=== PATIENT | male | born 1980 | race Caucasian/White ===

== ENCOUNTER 2016-05-24 15:52 | Emergency (ER) | payer BC ==
[~2016-05-24] VITALS: Ht 185.4 cm; Wt 68.0 kg
[~2016-05-24 15:52] MED LIST: CYCL-36 PO; TYLE3 PO; Z.0.NO CURRENT MEDS
[2016-05-24 15:55] VITALS: BP 129/81; PULSE 87; RESP 16; TEMP 99.7; O2SAT 98
[2016-05-24] MEDS ORDERED: CLIN1CAP6 PO (16:31)
[2016-05-24] MEDS ORDERED: HYDR-3583 PO (16:31)
[2016-05-24] MEDS ORDERED: ONDANSETRON HCL 4 MG/2 ML VIAL IV PUSH ONE (17:00)
[2016-05-24] MEDS ORDERED: CLINDAMYCIN INJ 600 MG in SODIUM CHLORIDE 0.9% INJ 100 ML IV ONE (17:00)
[2016-05-24] MEDS ORDERED: SODIUM CHLOR 0.9% 1000 ML INJ 1,000 ML IV ONE (17:00)
[2016-05-24 17:05] LABS: AUTOMATED NEUTROPHIL # 9.2 TH/MM3 (1.8-7.7); BASOPHIL # 0.5 TH/MM3 (0-0.2); BASOPHIL % 3.8 % (0.0-2.0); EOSINOPHIL % 0.2 % (0.0-4.0); HEMATOCRIT 40.4 % (39.0-51.0); HEMO FLAGS DIFF FINAL; LYMPH % 10.3 % (9.0-44.0); LYMPHOCYTE # 1.2 TH/MM3 (1.0-4.8); MEAN CELL VOLUME 85.9 FL (80.0-100.0); MEAN CORPUSCULAR HEMOGLOBIN 28.8 PG (27.0-34.0); MEAN CORPUSCULAR HGB CONC 33.5 % (32.0-36.0); MONO % 8.9 % (0.0-8.0); NEUT % 76.8 % (16.0-70.0); PLATELET COUNT 232 TH/MM3 (150-450); RED BLOOD COUNT 4.71 MIL/MM3 (4.50-5.90); RED CELL DISTRIBUTION WIDTH 11.8 % (11.6-17.2)
[2016-05-24 17:15] LABS: POTASSIUM 3.7 MEQ/L (3.5-5.1)
[2016-05-24 17:18] LABS: BICARBONATE 29.8 MEQ/L (21.0-32.0)
[2016-05-24] MEDS ORDERED: KETOROLAC TROMETHAMINE 30 MG/ML (IVP) VIAL IV PUSH ONE (17:30)
--- NOTE | 2016-05-24 17:54 | PD ---
HPI Chief Complaint: Oral / Dental Pain or Problem Time Seen by Provider: 16:50 Travel History International Travel<30 days: No Contact w/Intl Traveler<30days: No Traveled to known affect area: No History of Present Illness HPI 35-year-old male states that he went to the [facility] and they placed him on a penicillin antibiotic but as he was throwing up but not feeling better he went to an urgent care. He states they placed him on a nausea medication and clindamycin but he threw that up. He states he last tried to take it this morning. He states that he still having pain to his right lower tooth. He states the dentist plans to pull that tooth after a week of antibiotics. He denies other concurrent complaints. Quality is sharp. Severity is moderate. Pain is worse with movement of his jaw. He denies other specific modifying factors. PFSH Past Medical History Medical History: Denies Significant Hx Past Surgical History Surgical History: No Previous Surgery Social History Alcohol Use: Yes (OCC) Tobacco Use: No Substance Use: No Allergies-Medications (Allergen,Severity, Reaction): Coded Allergies: No Known Allergies (Unverified , 05/24/16) Reported Meds & Prescriptions Reported Meds & Active Scripts Active Phenergan (Promethazine HCl) 25 Mg Tab 25 Mg PO Q6H PRN Reported Hydrocodone-Acetaminophen 10-325 mg Tab 1 Tab PO Q6H PRN Clindamycin (Clindamycin HCl) 300 Mg Cap 300 Mg PO Q6H Review of Systems Except as stated in HPI: all other systems reviewed are Neg Physical Exam Narrative GENERAL: Well-nourished, well-developed patient. Patient has pain with opening mouth which limits visualization SKIN: Warm and dry. HEAD: Normocephalic and atraumatic. EYES: No injection or drainage. ENT: No nasal drainage noted. Poor dentition noted to left lower molar with tenderness near this area without drainable periapical abscess, cervical lymphadenopathy noted on left NECK: Supple, trachea midline. No meningeal signs CARDIOVASCULAR: Regular rate and rhythm RESPIRATORY: Breath sounds equal bilaterally. No accessory muscle use. GASTROINTESTINAL: Abdomen soft, non-tender, nondistended. NEUROLOGICAL: Awake and alert. Motor and sensory grossly within normal limits. Normal speech. Data Data Last Documented VS Vital Signs Date Time Temp Pulse Resp B/P Pulse Ox O2 Delivery O2 Flow Rate FiO2 05/24/16 15:55 99.7 87 16 129/81 98 Orders Complete Blood Count With Diff (05/24/16 16:53) Basic Metabolic Panel (Bmp) (05/24/16 16:53) Iv Access Insert/Monitor (05/24/16 16:53) Ecg Monitoring (05/24/16 16:53) Oximetry (05/24/16 16:53) Ondansetron Inj (Zofran Inj) (05/24/16 17:00) Sodium Chlor 0.9% 1000 Ml Inj (Ns 1000 M (05/24/16 17:00) Clindamycin Inj (Cleocin Inj) (05/24/16 17:00) Ketorolac Inj (Toradol Inj) (05/24/16 17:30) Oral Rehydration (05/24/16 17:24) Labs Laboratory Tests Test 05/24/16 17:00 White Blood Count 12.0 TH/MM3 Red Blood Count 4.71 MIL/MM3 Hemoglobin 13.6 GM/DL Hematocrit 40.4 % Mean Corpuscular Volume 85.9 FL Mean Corpuscular Hemoglobin 28.8 PG Mean Corpuscular Hemoglobin 33.5 % Concent Red Cell Distribution Width 11.8 % Platelet Count 232 TH/MM3 Mean Platelet Volume 8.3 FL Neutrophils (%) (Auto) 76.8 % Lymphocytes (%) (Auto) 10.3 % Monocytes (%) (Auto) 8.9 % Eosinophils (%) (Auto) 0.2 % Basophils (%) (Auto) 3.8 % Neutrophils # (Auto) 9.2 TH/MM3 Lymphocytes # (Auto) 1.2 TH/MM3 Monocytes # (Auto) 1.1 TH/MM3 Eosinophils # (Auto) 0.0 TH/MM3 Basophils # (Auto) 0.5 TH/MM3 CBC Comment DIFF FINAL Differential Comment Sodium Level 137 MEQ/L Potassium Level 3.7 MEQ/L Chloride Level 97 MEQ/L Carbon Dioxide Level 29.8 MEQ/L Anion Gap 10 MEQ/L Blood Urea Nitrogen 17 MG/DL Creatinine 0.92 MG/DL Estimat Glomerular Filtration 95 ML/MIN Rate Random Glucose 126 MG/DL Calcium Level 9.8 MG/DL MDM Medical Decision Making Medical Screen Exam Complete: Yes Emergency Medical Condition: Yes Medical Record Reviewed: Yes (past history confirmed) Interpretation(s) CBC & BMP Diagram 05/24/16 17:00 Differential Diagnosis Dental abscess, dental Caries, parotitis Narrative Course Will check blood work and dose with Toradol, Zofran, IV fluids, clindamycin and reevaluate On recheck patient is feeling better. no emesis here, Able to open his mouth with better visualization but still notes discomfort, no facial swelling other than mild left-sided cervical lymphadenopathy. Patient agrees to hold on CT imaging and to return if worsens, all questions answered. Patient knows that follow up is incumbent on them and to return to the emergency room immediately if new or worsening symptoms develop. Patient given strict return precautions, vitals reviewed and are normal, agrees to further workup as an outpatient. Diagnosis Primary Impression: Dental infection Patient Instructions: General Instructions Additional Instructions: return as needed-fever, persistent vomiting..., keep hydrated, zofran and phenergan as needed for nausea, take antibiotic course completely, follow with dentist tommorrow for recheck Med/Other Pt SpecificInfo: Prescription(s) given Scripts Promethazine (Phenergan)25 Mg Tab25 Mg PO Q6H PRN (NAUSEA OR VOMITING) #15 TAB Prov:Arlet Morgan MD 05/24/16 Disposition: 01 DISCHARGE HOME Condition: Stable Arlet Morgan MD May 24, 2016 17:54
[2016-05-24] MEDS ORDERED: PROM25TA5 PO (17:58)
[2016-05-24 18:36] VITALS: O2SAT 99
[2016-05-24 18:40] VITALS: BP 113/73
== END 2016-05-24 18:55 | disposition home or self-care (01) ==
LOC: PHED 15:52
DX: K04.7 Periapical abscess without sinus (principal)
CPT/HCPCS: 80048; 85025; 96365; 96375; 99283; J1885; J2405; J7030

== ENCOUNTER 2017-07-12 21:03 | Emergency (ER) | payer BC ==
[~2017-07-12] VITALS: Ht 172.7 cm; Wt 77.5 kg
[~2017-07-12 21:03] MED LIST changes: +CLIN300C5 PO; -CYCL-36 PO; +HYDR-3583 PO; +PROM25TA5 PO; -TYLE3 PO; -Z.0.NO CURRENT MEDS
[2017-07-12 21:08] VITALS: BP 144/83; PULSE 76; RESP 16; O2SAT 100
[2017-07-12] MEDS ORDERED: SODIUM CHLORIDE 0.9% FLUSH 10 ML FLUSH IVF PRN (21:15)
[2017-07-12 21:18] VITALS: O2SAT 100
--- NOTE | 2017-07-12 21:19 | PD ---
HPI Chief Complaint: Chest Pain Time Seen by Provider: 21:15 Travel History International Travel<30 days: No Contact w/Intl Traveler<30days: No Traveled to known affect area: No History of Present Illness HPI 36-year-old male patient with no significant past medical issues, presents to the ER today for several days history of intermittent substernal chest discomfort and shortness of breath. He states he gets sweaty when the episodes come, and they have been coming and going. He has a 3 out of 10 constant chest discomfort. He does not know of any triggers. He states he is a pretty active person, kayaks, skates, and has not had problems with like this in the past. He denies any long car rides or plane rides recently. He denies any leg swelling or leg pain, fevers, or other symptoms. Modifying Factors: None Associated Signs & Symptoms: Chest discomfort, shortness of breath intermittently Risk Factors: None PFSH Social History Alcohol Use: Yes (OCC) Tobacco Use: No Substance Use: No Allergies-Medications (Allergen,Severity, Reaction): Coded Allergies: No Known Allergies (Unverified , 05/24/16) Reported Meds & Prescriptions Reported Meds & Active Scripts Active Review of Systems Except as stated in HPI: all other systems reviewed are Neg Physical Exam Narrative GENERAL: Well-developed young white male patient currently not in acute distress. Awake and oriented 3. SKIN: Focused skin assessment warm/dry. HEAD: Atraumatic. Normocephalic. EYES: Pupils equal and round. No scleral icterus. No injection or drainage. ENT: No nasal bleeding or discharge. Mucous membranes pink and moist. NECK: Trachea midline. No JVD. Supple. CARDIOVASCULAR: Regular rate and rhythm. No murmur appreciated. RESPIRATORY: No accessory muscle use. Clear to auscultation. Breath sounds equal bilaterally. GASTROINTESTINAL: Abdomen soft, non-tender, nondistended. Hepatic and splenic margins not palpable. MUSCULOSKELETAL: No obvious deformities. No clubbing. No cyanosis. No edema. NEUROLOGICAL: Awake and alert. No obvious cranial nerve deficits. Motor grossly within normal limits. Normal speech. PSYCHIATRIC: Mildly anxious mood and affect; insight and judgment normal. Data Data Last Documented VS Vital Signs Date Time Temp Pulse Resp B/P (MAP) Pulse Ox O2 Delivery O2 Flow Rate FiO2 07/12/17 22:17 63 16 122/72 (89) 97 Room Air 118/70 (86) Orders Orders Ckmb (Isoenzyme) Profile (07/12/17 21:15) Complete Blood Count With Diff (07/12/17 21:15) Comprehensive Metabolic Panel (07/12/17 21:15) D-Dimer (07/12/17 21:15) Magnesium (Mg) (07/12/17 21:15) Prothrombin Time / Inr (Pt) (07/12/17 21:15) Act Partial Throm Time (Ptt) (07/12/17 21:15) Troponin I (07/12/17 21:15) Ecg Monitoring (07/12/17 21:15) Bilateral Bp Monitoring (07/12/17 21:15) Iv Access Insert/Monitor (07/12/17:15) Oximetry (07/12/17 21:15) Oxygen Administration (07/12/17 21:15) Sodium Chloride 0.9% Flush (Ns Flush) (07/12/17 21:15) Chest, Pa & Lat (07/12/17 21:15) Ed Discharge Order (07/12/17 22:42) Labs Laboratory Tests Test 07/12/17 21:30 White Blood Count 8.5 TH/MM3 Red Blood Count 4.91 MIL/MM3 Hemoglobin 14.1 GM/DL Hematocrit 42.6 % Mean Corpuscular Volume 86.7 FL Mean Corpuscular Hemoglobin 28.6 PG Mean Corpuscular Hemoglobin Concent 33.0 % Red Cell Distribution Width 12.1 % Platelet Count 243 TH/MM3 Mean Platelet Volume 8.9 FL Neutrophils (%) (Auto) 67.4 % Lymphocytes (%) (Auto) 23.8 % Monocytes (%) (Auto) 5.8 % Eosinophils (%) (Auto) 0.7 % Basophils (%) (Auto) 2.3 % Neutrophils # (Auto) 5.7 TH/MM3 Lymphocytes # (Auto) 2.0 TH/MM3 Monocytes # (Auto) 0.5 TH/MM3 Eosinophils # (Auto) 0.1 TH/MM3 Basophils # (Auto) 0.2 TH/MM3 CBC Comment DIFF FINAL Differential Comment Prothrombin Time 10.8 SEC Prothromb Time International Ratio 1.1 RATIO Activated Partial Thromboplast Time 26.7 SEC D-Dimer Quantitative (PE/DVT) LESS THAN 0.19 MG/L FEU Blood Urea Nitrogen 17 MG/DL Creatinine 0.85 MG/DL Random Glucose 85 MG/DL Total Protein 7.7 GM/DL Albumin 4.6 GM/DL Calcium Level 9.2 MG/DL Magnesium Level 2.2 MG/DL Alkaline Phosphatase 52 U/L Aspartate Amino Transf (AST/SGOT) 12 U/L Alanine Aminotransferase (ALT/SGPT) 22 U/L Total Bilirubin 0.6 MG/DL Sodium Level 137 MEQ/L Potassium Level 3.7 MEQ/L Chloride Level 104 MEQ/L Carbon Dioxide Level 25.8 MEQ/L Anion Gap 7 MEQ/L Estimat Glomerular Filtration Rate 103 ML/MIN Total Creatine Kinase 87 U/L Troponin I LESS THAN 0.02 NG/ML MDM Medical Decision Making Medical Screen Exam Complete: Yes Emergency Medical Condition: Yes Medical Record Reviewed: Yes Interpretation(s) EKG shows normal sinus rhythm at a rate of 72 bpm. Some repolarization changes. No signs of acute ST elevations or depressions. Laboratory Tests Test 07/12/17 21:30 Basophils (%) (Auto) 2.3 % (0.0-2.0) Aspartate Amino Transf (AST/SGOT) 12 U/L (15-37) Troponin I LESS THAN 0.02 NG/ML Last 24 hours Impressions Chest X-Ray 07/12/172114 Signed Impressions: Service Date/Time: July 21:36 - CONCLUSION: No acute disease. Nathan Ortiz MD Differential Diagnosis ACS versus dysrhythmias versus anxiety attack versus PE versus pneumonia Narrative Course EKG was unremarkable for any ST changes or dysrhythmias. Chest x-ray was unremarkable for any acute pulmonary processes. Cardiac enzymes are negative. Lab work was fairly unremarkable. D-dimer is negative. At this point, I have discussed the findings with the patient and considering his history, he should be fairly low risk for any cardiac issues at this time. He has no family history of early heart disease either. I have discussed admission to chest pain center versus follow-up with primary care physician as an outpatient for further evaluation. The patient states that he is comfortable with following up as an outpatient and does not want to be admitted at this time. He should return for any worsening in symptoms as necessary. The plan has been discussed with him and he states understanding. Diagnosis Primary Impression: Atypical chest pain Disposition: DISCHARGE HOME Condition: Stable [place]othai,Rewadee MD July 12, 2017 21:19
[2017-07-12 21:57] LABS: AUTOMATED NEUTROPHIL # 5.7 TH/MM3 (1.8-7.7); BASOPHIL # 0.2 TH/MM3 (0-0.2); BASOPHIL % 2.3 % (0.0-2.0); EOSINOPHIL # 0.1 TH/MM3 (0-0.4); EOSINOPHIL % 0.7 % (0.0-4.0); HEMATOCRIT 42.6 % (39.0-51.0); HEMOGLOBIN 14.1 GM/DL (13.0-17.0); LYMPH % 23.8 % (9.0-44.0); MEAN CELL VOLUME 86.7 FL (80.0-100.0); MEAN CORPUSCULAR HEMOGLOBIN 28.6 PG (27.0-34.0); MEAN PLATELET VOLUME 8.9 FL (7.0-11.0); MONO % 5.8 % (0.0-8.0); MONOCYTE # 0.5 TH/MM3 (0-0.9); NEUT % 67.4 % (16.0-70.0); PLATELET COUNT 243 TH/MM3 (150-450); RED BLOOD COUNT 4.91 MIL/MM3 (4.50-5.90); RED CELL DISTRIBUTION WIDTH 12.1 % (11.6-17.2); WHITE BLOOD COUNT 8.5 TH/MM3 (4.0-11.0)
--- NOTE | 2017-07-12 21:59 | RADRPT ---
EXAM DATE/TIME: 07/12/2017 21:36 [facility] COMPARISON: No previous studies available for comparison. INDICATIONS : Chest pain. MEDICAL HISTORY : None. SURGICAL HISTORY : None. ENCOUNTER: Initial ACUITY: 1 day PAIN SCORE: 7/10 LOCATION: Left chest FINDINGS: PA and lateral views of the chest demonstrate the lungs to be symmetrically aerated without evidence of mass, infiltrate or effusion. The cardiomediastinal contours are unremarkable. Osseous structure s are intact. CONCLUSION: No acute disease. Nathan Ortiz MD on July 12, 2017 at 21:57 Board Certified Radiologist. This report was verified electronically.
[2017-07-12 22:12] LABS: CHLORIDE 104 MEQ/L (98-107); SODIUM (NA) 137 MEQ/L (136-145)
[2017-07-12 22:15] LABS: CALCIUM 9.2 MG/DL (8.5-10.1)
[2017-07-12 22:16] LABS: ALBUMIN 4.6 GM/DL (3.4-5.0); BICARBONATE 25.8 MEQ/L (21.0-32.0); BLOOD UREA NITROGEN 17 MG/DL (7-18); GLUCOSE,RANDOM 85 MG/DL (74-106); MAGNESIUM 2.2 MG/DL (1.5-2.5)
[2017-07-12 22:17] VITALS: BP_SYST 118; BP_SYST 122; BP_DIAS 70; BP_DIAS 72; PULSE 63; RESP 16; O2SAT 97
[2017-07-12 22:19] LABS: ALT (GPT) 22 U/L (12-78); AST (GOT) 12 U/L (15-37); CREATININE 0.85 MG/DL (0.60-1.30); GLOMERULAR FILTRATION RATE 103 ML/MIN (>89)
[2017-07-12 22:20] LABS: TOTAL BILIRUBIN ADULT 0.6 MG/DL (0.2-1.0); TOTAL PROTEIN 7.7 GM/DL (6.4-8.2)
[2017-07-12 22:22] LABS: ALKALINE PHOSPHATASE 52 U/L (45-117)
[2017-07-12 22:24] LABS: TROPONIN I LESS THAN 0.02 NG/ML (0.02-0.05)
[2017-07-12 22:26] LABS: INTERNATIONAL NORMALIZED RATIO 1.1 RATIO; PROTHROMBIN TIME - PATIENT 10.8 SEC (9.8-11.6)
[2017-07-12 22:38] LABS: D-DIMER LESS THAN 0.19 MG/L FEU (0.00-0.50)
--- NOTE | 2017-07-14 08:35 | EKG ---
Date Performed: 07/12/2017 Time Performed: 21:10:11 PTAGE: 36 years EKG: Sinus rhythm POSSIBLE LEFT ATRIAL ENLARGEMENT POSSIBLE RIGHT VENTRICULAR CONDUCTION DELAY BORDERLINE ECG WARNING: DATA QUALITY MAY AFFECT INTERPRETATION NO PREVIOUS TRACING DOCTOR: Franky Oh Interpretating Date/Time 07/14/2017 08:32:16
== END 2017-07-12 23:27 | disposition home or self-care (01) ==
LOC: PHED 21:03
DX: R07.89 Other chest pain (principal); R06.02 Shortness of breath
CPT/HCPCS: 71046; 80053; 82550; 83735; 84484; 85025; 85379; 85610; 85730; 93005; 99285